=== PATIENT | female | born 2000 | race Caucasian/White ===

== ENCOUNTER 2022-12-14 07:20 | Day surgery (SDC) | payer MEDICAID, SELFPAY ==
[2022-12-11 11:54] VITALS: BMI 26.5
[2022-12-14 07:52] VITALS: BP 109/64; PULSE 79; RESP 18; TEMP 36.2; O2SAT 97
[2022-12-14] MEDS: sodium chloride 0.9% 1,000 ML 30 ML IV (08:01)
--- NOTE | 2022-12-14 08:15 | ANES.PREANE2 ---
Pre-Anesthetic Assessment Height/Weight: Height 1.57 m Weight 65.771 kg Temp Pulse Resp BP Pulse Ox O2 Del Method 97.1 F L 79 18 109/64 97 12/14/22 07:52 12/14/22 07:52 12/14/22 07:52 12/14/22 07:52 12/14/22 07:52 12/14/22 07:52 Preop Diagnosis: epigastric pain Operation Date: 12/14/22 09:00 Proposed Procedures p EGD [id number] ,R10.13(Not Applicable) - Joao Maya DO Familial anesthetic complications: None Was Beta Augusto taken within 24 hours: N/A Was Clonidine taken within 24 hours: N/A Last intake: Intake Last Liquid Date 12/13/22 Last Liquid Time 20:30 Last Solid Date 12/13/22 Last Solid Time 20:30 Social No alcohol and No tobacco Exam alert, oriented x 3, clear to auscultation bilaterally and regular rate & rhythm Airway Submandibular: within normal limits Cervical ROM: within normal limits Mallampati: Class II Dentition: full History/ROS No significant history except as noted Pulmonary None reported CV/HEM None reported None reported Hepatic None reported GI epigastric pain Metabolic None reported Musc/skel None reported Neuropsych None reported Anesthetic Plan ASA status: 1 Anesthesia: Anesthesia Evaluation and MAC Risk of > 500 ml blood loss (7ml/kg in children): No Medications/Allergies Home Medications Medication Instructions Recorded Confirmed Last Taken Type No Known Home Medications 12/11/22 12/14/22 Unknown History Allergies Allergy/AdvReac Type Severity Reaction Status Date / Time No Known Allergies Allergy Unverified 12/14/22 07:47 Current Medications Generic Name Dose Route Start Last Admin Trade Name Freq PRN Reason Stop Dose Admin Sodium Chloride 1,000 mls @ 30 mls/hr 12/14/22 07:45 12/14/22 08:01 Sodium Chloride 0.9% IV 12/15/22 07:44 30 mls/hr .Q24H GAVIN Administration PFSH Anesthesia Female Reproductive History Date of last menstrual period: 12/10/22 Data Anesthesia Cardiac Studies: No Data to Display
--- NOTE | 2022-12-14 08:49 | W.PM.OPSUD ---
Surgery/Procedure H&P Update DATE OF PROCEDURE: December 14, 2022 DATE H&P PERFORMED: 12/11/22 PREOP DIAGNOSIS: epigastric pain PLANNED PROCEDURE: Operation Date: 12/14/22 09:00 Proposed Procedures p EGD [id number] ,R10.13(Not Applicable) - Joao Maya DO
[2022-12-14 09:09] VITALS: BP 101/60; PULSE 72; RESP 16; TEMP 36.3; O2SAT 100
[2022-12-14 09:22] VITALS: BP 100/66; PULSE 67; RESP 16; O2SAT 100
[2022-12-14 09:30] VITALS: BP 116/81; PULSE 80; RESP 16; O2SAT 98
[2022-12-14 09:44] LABS: OR HCG Qualitative Urine Negative (Negative)
== END 2022-12-14 09:45 | disposition home or self-care (01) ==
PROVIDERS: Anesthesiology; Visit Provider Surgery
PROC: 0DJ08ZZ Inspection of Upper Intestinal Tract, Via Natural or Artificial Opening Endoscopic (ICD-10-PCS; CPT 43235; principal; 2022-12-14 09:00)
DX: R10.13 Epigastric pain (principal); K29.50 Unspecified chronic gastritis without bleeding; B96.81 Helicobacter pylori [H. pylori] as the cause of diseases classified elsewhere
CPT/HCPCS: 43239; 81025; 84703; 88305; J2704; J7030

== ENCOUNTER 2023-04-26 08:01 | Outpatient (CLI) | payer OTHER, MEDICAID, SELFPAY ==
--- NOTE | 2023-04-26 08:09 | NM_ITS ---
WS: [id number] NUCLEAR MEDICINE HIDA SCAN CLINICAL INFORMATION: EPIGASTRIC PAIN TECHNIQUE: Following intravenous administration of 7.3 mCi of technetium 99m mebrofenin, images of th e abdomen were obtained over the course of 60 minutes. Next, gallbladder ejection fraction was determ ined by obtaining preprandial and one-hour postprandial images of the gallbladder following oral rosalba stion of Ensure. COMPARISON: None. FINDINGS: Normal hepatic uptake at 5 minutes. Normal hepatic excretion. Gallbladder is visualized by 10 minutes . No evidence of acute cholecystitis. Normal common bile duct and small bowel activity. Gallbladder ejection fraction 88% within normal limits. No evidence of chronic cholecystitis. NM/NM hepatobiliary w phar* [id number] IMPRESSION: 1. No evidence of acute or chronic cholecystitis. 2. Gallbladder ejection fraction 88% within normal limits
== END 2023-04-26 08:02 | disposition home or self-care (01) ==
PROVIDERS: PCP Pediatrics; Visit Provider Surgery
DX: R10.13 Epigastric pain (principal)
CPT/HCPCS: 78227; A9537